=== PATIENT | female | born 1955 | race Caucasian/White ===

== ENCOUNTER → 2017-06-27 10:19 | Outpatient (CLI) | payer OTHER, SELFPAY ==
--- NOTE | 2017-06-27 10:22 | BI_ITS ---
MAMMOGRAPHY - BILATERAL SCREENING REASON FOR EXAM: Female, 62 years old. Routine annual screening examination. PERTINENT HISTORY: NO FAM HX LOST 15-17# LT STEREO BX 17 YRS AGO HERE TECHNIQUE: Digital bilateral breast eliel (3D mammographic acquisition) in the CC and MLO projections. 2-D mediolateral oblique (MLO) and craniocaudad (CC) views of both breasts were obtained. CAD: Full Field Digital Mammography with Computer Added Detection was performed. COMPARISON: 02/09/2004 and 01/16/2003 mammograms. FINDINGS: Breast Composition: The breasts are heterogeneously dense, which may obscure small masses. There are no dominant masses or suspicious calcifications. No other significant abnormalities are identified. BI/SCREENING MAMM (CAD), BILAT IMPRESSION: Stable bilateral screening mammogram. Yearly follow-up mammogram recommended. (A) ASSESSMENT CATEGORY: BIRADS Category 2: Benign. A letter regarding these results will be sent to the patient by the facility within 30 days. Approximately 10% of breast cancers are not detected by mammography. A normal mammogram should not delay biopsy of a clinically suspicious abnormality. [id number] Electronically Signed: Tessy Oconnell MD at 11:50 EDT Tel , Service support ,
--- NOTE | 2017-06-27 10:30 | BD_ITS ---
STUDY: DUAL ENERGY X-RAY ABSORPTIOMETRY / DXA REASON FOR EXAM: Female, 62 years old. The patient is postmenopausal. TECHNIQUE: Bone Mineral Density (BMD) measurements of lumbar spine and bilateral hips were obtained. COMPARISON: Comparison is made with prior study dated February 19, 2003. FINDINGS: Lumbar Spine (L1-L4): g/cm2 (0.800) / T-score (-3.2) / Z-score (-1.6) Findings are suggestive of osteoporosis with a high fracture risk. Left Femur Total: g/cm2 (0.807) / T-score (-1.6) / Z-score (-0.4) Left Femoral Neck: g/cm2 (0.778) / T-score (-1.9) / Z-score (-0.5) Right Femur Total: g/cm2 (0.781) / T-score (-1.8) / Z-score (-0.7) Right Femoral Neck: g/cm2 (0.836) / T-score (-1.5) / Z-score (0.0) The T-Scores on the most recent prior examination were: Lumbar Spine (L1-L4): There has been worsening of bone density since the previous examination. Left Femur Total: which represents a worsening of 10.4%. BD/Dexa Bone Density Study IMPRESSION: The patient is considered osteoporotic as outlined below according to World Chance Organization (WHO) criteria with a high fracture risk. There has been worsening of bone density since the previous examination. Reference Information: The T-score is the number of standard deviations above or below the standard which is normal for young adults at their peak bone mineral density. The World Health Organization (WHO) interprets the T-scores as follows: Above -1 Normal bone density Between -1 and -2.5 Osteopenia Equal to / or below -2.5 Osteoporosis As a practical clinical guideline, osteopenia may be graded as follows: Mild -1 through -1.5 Moderate -1.6 through -2.0 Severe -2.1 through -2.4 The Z-score is the number of standard deviations above or below age-matched controls. A Z-score of less than -1.5 would be considered abnormal. References: 1. NIH Osteoporosis and Related Bone Diseases http://www.osteo.org 2. International Society for Clinical Densitometry http://www.iscd.org 3. National Osteoporosis Foundation http://www.nof.org Electronically Signed: Alvin Wyman MD at 15:55 EDT Tel [phone], Service support ,
== END ==
PROVIDERS: Family Provider Nurse Practitioner; PCP Nurse Practitioner; Visit Provider Nurse Practitioner
DX: Z12.31 Encounter for screening mammogram for malignant neoplasm of breast (principal); Z78.0 Asymptomatic menopausal state; M81.0 Age-related osteoporosis without current pathological fracture
CPT/HCPCS: 77063; 77067; 77080

== ENCOUNTER → 2018-01-01 16:55 | Outpatient (CLI) | payer SELFPAY ==
--- NOTE | 2018-01-01 17:30 | MRI_ITS ---
STUDY: MRI LUMBAR SPINE WITHOUT CONTRAST REASON FOR EXAM: Female, 62 years old. Low back pain. Left leg pain. Patient had surgery at the L2-3 level TECHNIQUE: Standardized fat and water weighted pulse sequences were obtained in the sagittal and axial planes. COMPARISON: None FINDINGS: There is normal alignment and curvature of the lumbosacral spine with no acute fractures or dislocations and no abnormal marrow infiltrative processes. All the disc spaces are normal height and signal except narrowing at the L5-S1 disc space with Modic type II endplate changes evident. The conus medullaris terminates at T12-L1. T12-L1: Normal endplates. Normal disc height, hydration and morphology. Normal bilateral facet joints. Normal central canal and bilateral lateral recesses. Normal bilateral intervertebral neural foramina. L1-2: Normal endplates. Normal disc height, hydration and morphology. Normal bilateral facet joints. Normal central canal and bilateral lateral recesses. Normal bilateral intervertebral neural foramina. L2-3: There is a 1.0 x 0.5 cm mass in the left parapedicular level. This may be from a sequestered disc material following a disc extrusion at this level although may represent an area of post surgical fibrosis (the patient had surgery of the L2-3 level and no contrast was used). It abuts on the left intraspinal L3 nerve root There is no demonstrable extruding disc currently seen at this level.. L3-4: Normal endplates. Normal disc height, hydration and morphology. Normal bilateral facet joints. Normal central canal and bilateral lateral recesses. Normal bilateral intervertebral neural foramina. L4-5: Normal endplates. There is a 6.2 mm annular rent on the right side at the L4-5 level. This is adjacent to the right intervertebral foramen.. Normal bilateral facet joints. Normal central canal and bilateral lateral recesses. Normal bilateral intervertebral neural foramina. L5-S1: Disc space narrowing with intervertebral osteochondrosis but no focal disc protrusion or extrusion. The aorta and visualized portions of the lungs are within normal limits. MRI/Spine Lumbar (Routine) IMPRESSION: A 1.0 x 0.5 cm left parapedicular mass. It impinges on the left intrathecal L3 nerve root and may represent a sequestered disc all post surgical fibrosis. A 6.2 mm annular rent on the right side adjacent to the right intervertebral foramen at the L4-5 level. Intervertebral osteochondrosis at L5-S1 Electronically Signed: Tree Quintero MD at 7:25 EDT Tel , Service support ,
== END ==
PROVIDERS: Family Provider Nurse Practitioner; PCP Nurse Practitioner; Referring Provider Anesthesiology Pain Medicine; Visit Provider Anesthesiology Pain Medicine
DX: M54.9 Dorsalgia, unspecified (principal); R29.898 Other symptoms and signs involving the musculoskeletal system
CPT/HCPCS: 72148

== ENCOUNTER → 2018-08-10 08:38 | Outpatient (CLI) | payer MEDICARE, OTHER, SELFPAY ==
--- NOTE | 2018-08-10 08:45 | BI_ITS ---
MAMMOGRAPHY - BILATERAL SCREENING REASON FOR EXAM: Female, 63 years old. Routine annual screening examination. PERTINENT HISTORY: Non-contributory. Remote left stereotactic breast biopsy. TECHNIQUE: Digital bilateral breast rajeev (3D mammographic acquisition) in the CC and MLO projections. 2-D mediolateral oblique (MLO) and craniocaudad (CC) views of both breasts were obtained. CAD: Full Field Digital Mammography with Computer Added Detection was performed. COMPARISON: Comparison is made with prior study dated June 27, 2017 and November 30, 2014. FINDINGS: Breast Composition: There are scattered areas of fibroglandular density. There are no dominant masses or suspicious calcifications. Once again, a tissue clip marker is seen in the deep upper lateral aspect of the left breast. No other significant abnormalities are identified. There has been no significant change since the prior study. BI/SCREEN MAMM (CAD) W/RAJEEV BILAT IMPRESSION: Stable bilateral screening mammogram. Yearly follow-up mammogram recommended. (A) ASSESSMENT CATEGORY: BIRADS Category 2: Benign. A letter regarding these results will be sent to the patient by the facility within 30 days. Approximately 10% of breast cancers are not detected by mammography. A normal mammogram should not delay biopsy of a clinically suspicious abnormality. [id number] Electronically Signed: Alvin Wyman, at 10:00 EDT , Service support ,
== END ==
PROVIDERS: Family Provider Nurse Practitioner; PCP Nurse Practitioner; Referring Provider Nurse Practitioner; Visit Provider Nurse Practitioner
DX: Z12.31 Encounter for screening mammogram for malignant neoplasm of breast (principal)
CPT/HCPCS: 77063; 77067

== ENCOUNTER → 2019-09-09 14:28 | Outpatient (CLI) | payer MEDICARE, OTHER, SELFPAY ==
--- NOTE | 2019-09-09 14:30 | BI_ITS ---
MAMMOGRAPHY - BILATERAL SCREENING REASON FOR EXAM: Female, 64 years old. Routine annual screening examination. PERTINENT HISTORY: Non-contributory. History of prior left stereotactic breast biopsy. TECHNIQUE: Digital bilateral breast rajeev (3D mammographic acquisition) in the CC and MLO projections. 2-D mediolateral oblique (MLO) and craniocaudad (CC) views of both breasts were obtained. CAD: Full Field Digital Mammography with Computer Added Detection was performed. COMPARISON: Comparison is made with prior examination dated August 10, 2018 and June 27, 2017. FINDINGS: Breast Composition: There are scattered areas of fibroglandular density. There are no dominant masses or suspicious calcifications. A tissue clip marker from prior biopsy is seen in the deep upper lateral aspect of the left breast. No other significant abnormalities are identified. There has been no significant change since the prior study. BI/SCREEN MAMM (CAD) W/RAJEEV BILAT IMPRESSION: Stable bilateral screening mammogram. Yearly follow-up mammogram recommended. (A) ASSESSMENT CATEGORY: BIRADS Category 2: Benign. A letter regarding these results will be sent to the patient by the facility within 30 days. Approximately 10% of breast cancers are not detected by mammography. A normal mammogram should not delay biopsy of a clinically suspicious abnormality. [id number] Electronically Signed: Alvin Wyman, at 15:28 EDT , Service support ,
--- NOTE | 2019-09-09 14:33 | BD_ITS ---
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 COMPARISON: Comparison is made with prior study dated June 27, 2017. FINDINGS: Lumbar Spine (L1-L4): g/cm2 (0.786) / T-score (-3.3) / Z-score (-1.7) Findings are suggestive of osteoporosis with a high fracture risk. Left Femur Total: g/cm2 (0.787) / T-score (-1.7) / Z-score (-0.5) Left Femoral Neck: g/cm2 (-0.808) / T-score (-1.7) / Z-score (-0.1) Right Femur Total: g/cm2 (0.779) / T-score (-1.8) / Z-score (-0.6) Right Femoral Neck: g/cm2 (0.848) / T-score (-1.4) / Z-score (0.2) The T-Scores on the most recent prior examination were: Lumbar Spine (L1-L4): There has been worsening of bone density since the previous examination. Left Femur Total: which represents a worsening of 2.5%. Right Femur Total: which represents a worsening of -0.3. BD/Dexa Bone Density Study IMPRESSION: The patient is considered osteoporotic as outlined below according to World Chance Organization (WHO) criteria with a high fracture risk. There has been worsening of bone density since the previous examination. Reference Information: The T-score is the number of standard deviations above or below the standard which is normal for young adults at their peak bone mineral density. The World Health Organization (WHO) interprets the T-scores as follows: Above -1 Normal bone density Between -1 and -2.5 Osteopenia Equal to / or below -2.5 Osteoporosis As a practical clinical guideline, osteopenia may be graded as follows: Mild -1 through -1.5 Moderate -1.6 through -2.0 Severe -2.1 through -2.4 The Z-score is the number of standard deviations above or below age-matched controls. A Z-score of less than -1.5 would be considered abnormal. References: 1. NIH Osteoporosis and Related Bone Diseases http://www.osteo.org 2. International Society for Clinical Densitometry http://www.iscd.org 3. National Osteoporosis Foundation http://www.nof.org Electronically Signed: Alvin Wyman, at 7:54 EDT , Service support ,
== END ==
PROVIDERS: PCP Nurse Practitioner; Referring Provider Nurse Practitioner; Visit Provider Nurse Practitioner
DX: M81.0 Age-related osteoporosis without current pathological fracture (principal); Z12.31 Encounter for screening mammogram for malignant neoplasm of breast
CPT/HCPCS: 77063; 77067; 77080

== ENCOUNTER 2020-05-18 09:00 | Outpatient (RCR) | payer MEDICARE, OTHER, SELFPAY ==
[2020-05-18] MEDS: COVID-19 VACC, MRNA(PFIZER)/PF 30 MCG/0.3 ML SYRINGE IM (16:46)
[2020-06-08] MEDS: COVID-19 VACC, MRNA(PFIZER)/PF 30 MCG/0.3 ML SYRINGE IM (16:24)
== END 2020-08-17 23:59 ==
LOC: IMMUN 09:00
PROVIDERS: PCP Nurse Practitioner; Visit Provider Family Medicine
DX: Z23 Encounter for immunization (principal)
CPT/HCPCS: 0001A; 0002A; 91300

== ENCOUNTER 2021-07-18 11:35 | Emergency (ER) | payer MEDICARE, OTHER, SELFPAY ==
[2021-07-18] VITALS (8 sets, daily range): BP systolic 118–144; BP diastolic 56–80; PULSE 70–105; RESP 12–22; TEMP 36.2; O2SAT 96–100; BMI 21.0
--- NOTE | 2021-07-18 11:45 | EX.ED.UPPERE ---
HPI History of Present Illness Chief Complaint: Upper Extremity Injury Detail of Chief Complaint: Left wrist injury and deformity Informant: patient and spouse/S.O. Occured/Mechanism Mechanism/Context: Yes blunt trauma Comment: Tripped on pavement falling with outstretched upper extremities Onset/Context/Timing Context: Sudden Onset Timing: Continuous Quality of Pain: Dull and Aching Location: Left wrist Current Severity: Mild Maximum Severity: Severe Worsened by: Any type of movement Relieved by: Better if held against torso Associated Symptoms Associated Symptoms: Positive for Loss of Funtion; Negative for Parasthesia and Weakness Narrative Narrative: Patient is a 66-year-old woman who was walking. She states their street is undergoing construction. She apparently tripped on the lip of the concrete. She fell forward with her arms outstretched. She sustained abrasion over the hypothenar eminence of her right hand and has deformity of the left wrist. She is right-hand dominant. She did hit her head. There is no into trauma. Has no loss conscious. She was not dazed. She denies ringing in ears decreased hearing. She denies trouble with vision. She has trouble with speech or swallowing. Denies neck pain. She denies paresthesia, anesthesia or motor weakness. She denies nausea or vomiting. Tetanus Immunization: >10 years Prior similar symptoms: No Recent Illness/Hospitalization: No PFSH [facility] Medical History (Updated 07/18/21 @ 15:[address] Harry Prather MD) Arthritis Osteoporosis Restless leg syndrome Home Medications ropinirole mg PO QHS 07/18/21 [History Last Taken Unknown] Allergy/AdvReac Type Severity Reaction Status Date / Time No Known Allergies Allergy Verified 07/18/21 11:37 Surgical History (Updated 07/18/21 @ 12:05 by Melissa Vsáquez) History of discectomy Social History (Updated 07/18/21 @ 11:[address] Harry Prather MD) household members: spouse Smoking Status: Never smoker substance use type: does not use ROS ROS ED Constitutional Constitutional ED: Denies chills or fever(s) Eyes Eyes: Denies blurry vision, change in vision or diplopia ENT ENT ED: Denies ear pain, rhinorrhea or sore throat Cardiovascular Cardiovascular: Denies chest pain, palpitations or racing heartbeat Respiratory/Chest Respiratory/Chest: Denies cough, dyspnea or dyspnea on exertion Gastrointestinal Gastrointestinal: Denies nausea or vomiting Musculoskeletal Musculoskeletal: Denies back pain, myalgias or neck pain Integumentary Reports Abrasions; Denies abscess or rash Neurologic Neurologic: Denies headache(s), paresthesias or weakness Hematologic/Lymphatic Hematologic/Lymphatic: Denies easy bleeding or easy bruising Allergic/Immunologic Allergic/Immunologic ED: Denies mouth swelling or tongue swelling EXAM Physical Exam Const Vital Signs: 07/18/21 11:36 Temperature 97.2 F L Temperature Source Temporal Pulse Rate 70 Respiratory Rate 16 Blood Pressure 118/56 L Blood Pressure Mean 76 Pulse Ox 99 Oxygen Delivery Method Room Air Positive well nourished and well developed General Appearance ED: well developed and NAD; Negative for cyanotic or diaphoretic HEENT Denies moist mucous membranes HEENT Narrative: There is no clinical signs of basilar skull fracture. There is no septal deviation hematoma. There is no evidence of dental trauma. normocephalic and atraumatic; Negative for tenderness Eyes PERRL and EOMs intact bilaterally Eyes Narrative: There is no subconjunctival hemorrhage. There is no evidence of entrapment. There is no evidence of hypoesthesia infraorbital nerve. Neck full ROM and supple General: Negative for tenderness Resp No normal respiratory effort and No clear to auscultation bilaterally Cardio regular rate, regular rhythm, S1 normal heart sound, S2 normal heart sound and no murmurs GI non-tender, non-distended and no masses Auscultation: normoactive bowel sounds Palpation: soft Back/Spine Cervical Spine: Negative for cervical spine tenderness Thoracic Spine / Upper Back: Negative for thoracic spinal tenderness Extremity Negative for normal to inspection or full ROM Extremity Narrative: Patient has obvious deformity left wrist. Median, radial and ulnar function intact. There is no pain the patient over the lateral medial epicondyle. Is no pain the patient over the radial head. General Extremety ED: Negative for edema General Extremity: Negative for edema Left Upper Extremity: wrist inspection (Obvious deformity), ROM (Limited due to pain and deformity) and neurovascular exam (Intact) Neuro oriented x3, CN's II-XII intact bilaterally and moves all extremities Sensorium / Orientation: alert Psych mental status grossly normal Skin Lesions: no lesions Rashes: no rashes Trauma: abrasion; Negative for no lacerations or abrasions MDM MDM MDM Narrative Medical decision making narrative: Patient made NPO. IV was established. She was treated with IV Zofran and morphine. X-ray of the wrist was ordered. Per the [place] CT head rule and [place] rule imaging of the head is not indicated or warranted. C-spine was cleared per Nexus criteria. Radiography Diagnostic Testing: Three-view x-ray left wrist reveals a Colles' fracture that is displaced and shortened. This was independently read by me at 1228 3 views of the wrist post reduction reveals approximate 5% displacement. There is loss of volar tilt. She has 0 degrees angulation. There may be a fracture line into the joint noted on the oblique view only. We will contact Dr. Fontanez who is on-call for orthopedics. The post reduction films were independently reviewed and interpreted by me at 1532 Procedures Upper Extremity Splints Upper Extremity Splint: Plaster and - (Short arm AP splint) Splint Fabrication: Fabricated Other Procedures Procedure(s): Hematoma block was placed using 1% lidocaine. Will reassess in 10 minutes. Hematoma block was not successful. Patient was consented for deep sedation using propofol to perform closed reduction of Colles' fracture left wrist. Patient was explained risk benefits of procedural sedation and need for reduction. She consented. Patient received a total of 110 mg of propofol. Procedure started at 1456 and ended at 1310. Closed reduction was undertaken. The fracture is somewhat unstable. Patient was placed in a short arm AP plaster splint and molded. We will obtain postreduction film to determine if successful and acceptable. Patient requested more pain medicine upon awakening. 4 more milligrams of morphine was ordered. Discharge Plan Triage Chief Complaint: Upper Extremity Injury ED Provider: Harry Prather Dx/Rx/DC Orders Clinical Impression: Displaced fracture of distal end of left radius, Closed fracture of styloid process of left ulna Prescriptions: No Action ropinirole 0.25 mg Tablet PO QHS RF: 0 Primary Care Provider: Della Davdi NP Referrals: Gabriel Fontanez DO [STAFF PHYSICIAN] - 3-5 Days Della David NP, [employer] [Primary Care Provider] - Disposition Disposition: Home, Self Care
[2021-07-18] MEDS: Ondansetron 4 MG/2 ML Vial IV (12:07)
[2021-07-18] MEDS: Morphine 4 MG/ML Syringe IV ×2 (12:07→15:26)
[2021-07-18] MEDS: Diphth,Pertuss(Acell),Tet Vac 0.5 ML Vial IM (12:14)
--- NOTE | 2021-07-18 12:20 | RAD_ITS ---
STUDY: X-RAY - LEFT WRIST REASON FOR EXAM: Female, 66 years old. Injury/Pain TECHNIQUE: 2 view(s) of the wrist were obtained. COMPARISON: None. FINDINGS: There is a comminuted nondisplaced fracture of the distal radial metaphysis. There is degenerative arthrosis of the radiocarpal articulation. Avulsion fracture of the ulnar styloid. Normal distal radioulnar articulation. Normal carpal bones. Normal carpal articulations. There is degenerative arthrosis of the carpometacarpal articulation of the thumb. Normal second through fifth carpometacarpal articulations. Normal visualized metacarpal bones. Soft tissue swelling. RAD/Wrist 2 Views IMPRESSION: Nondisplaced comminuted fracture of the distal superior metaphysis as well as an avulsion fracture of the ulnar styloid. Soft tissue swelling. Electronically Signed: Alvin Wyman MD at 12:39 EDT ,
[2021-07-18] MEDS: Propofol 200 MG/20 ML Vial IV BOLUS (15:18)
[2021-07-18] MEDS: Lidocaine 1% (30 ml sdv) 30 ML Vial 10 ML INFILT (15:18)
--- NOTE | 2021-07-18 15:24 | RAD_ITS ---
STUDY: X-RAY - LEFT WRIST REASON FOR EXAM: Female, 66 years old. Injury/Pain TECHNIQUE: 3 view(s) of the wrist were obtained. COMPARISON: Comparison is made with prior study done earlier today. FINDINGS: 3 views were obtained in the cast. There is satisfactory reduction. RAD/Wrist min 3 Views IMPRESSION: Satisfactory reduction of the distal radial fracture. Electronically Signed: Alvin Wyman MD at 15:44 EDT ,
== END 2021-07-18 15:54 | disposition home or self-care (01) ==
PROVIDERS: Emergency Provider Emergency Medicine; PCP Nurse Practitioner; Visit Provider Emergency Medicine
DX: M80.832A Other osteoporosis with current pathological fracture, left forearm, initial encounter for fracture (principal); W01.0XXA Fall on same level from slipping, tripping and stumbling without subsequent striking against object, initial encounter; Y93.01 Activity, walking, marching and hiking; Y92.410 Unspecified street and highway as the place of occurrence of the external cause
CPT/HCPCS: 25600; 73100; 73110; 90715; 96374; 96375; 96376; 99285; A4216; J2405

== ENCOUNTER → 2021-07-22 | Outpatient (CLI) | payer MEDICARE, OTHER, SELFPAY ==
--- NOTE | 2021-07-22 12:46 | EKG12_ITS ---
Test Reason : PRE OP Blood Pressure : / mmHG Vent. Rate : 095 BPM Atrial Rate : 095 BPM P-R Int : 142 ms QRS Dur : 068 ms QT Int : 332 ms P-R-T Axes : 061 050 076 degrees QTc Int : 417 ms Normal sinus rhythm Normal ECG Confirmed by VAN TAPIA, ISABELLE ([id number]), brands editor GHAZALA CONKLIN ([id number]) on 07/25/2021 9:23:17 AM Referred By: KHADIJAH Confirmed By:ISABELLE ARAUJO MD
[2021-07-22 13:33] LABS: Absolute Lymphocyte Count 1.32 X10^3/uL (0.83-4.51); Absolute Neutrophil Count 3.5 X10^3/uL (2.0-7.7); Basophil# 0.06 X10^3/uL; Basophil% 1.1 % (0-1); Eosinophils% 1.9 % (0-5); Hematocrit 41.7 % (37-47); Hemoglobin 13.1 g/dL (12.0-15.0); Lymphocyte # 1.32 X10^3/ul (0.83-4.51); Lymphocyte % 24.9 % (19-41); Mean Corp Hgb Conc 31.4 g/dL (32-36); Mean Corpuscular Hgb 28.1 pg (27.0-32.0); Mean Corpuscular Volume 89.5 fL (81-99); Mean Platelet Vol. 8.7 fl (6.2-12.0); Monocyte# 0.33 X10^3/uL; Monocyte% 6.2 % (0-10); NRBC Flagged by Analyzer 0 % (0-5); Neutrophil # 3.49 X10^3/uL (2.7-7.7); Neutrophil % 65.7 % (47-70); Platelet Count 296 K/mm3 (150-450); RBC Distribution Width CV 13.2 % (11.6-14.6); RBC Distribution Width SD 43.5 fl (35.1-43.9); Red Blood Count 4.66 M/mm3 (4.2-5.4); White Blood Count 5.3 K/mm3 (4.4-11.0)
[2021-07-22 13:56] LABS: Anion Gap 5 (5-15); BUN 15 mg/dL (7-18); BUN/Creat Ratio 15.4 RATIO (10-20); Calcium,Total 9.4 mg/dL (8.5-10.1); Chloride 102 mmol/L (98-107); Creatinine, Serum 0.98 mg/dL (0.55-1.02); EST Glomerular Filtration Rate 60 mL/min (>60); Est Glom Filt Rate - Afr Amer 73 mL/min (>60); Glucose 123 mg/dL (74-106); Potassium 3.8 mmol/L (3.5-5.1); Sodium Level 137 mmol/L (136-145)
== END | disposition home or self-care (01) ==
PROVIDERS: PCP Nurse Practitioner; Visit Provider Physician Assistant Surgical
DX: Z01.818 Encounter for other preprocedural examination (principal); Z01.810 Encounter for preprocedural cardiovascular examination
CPT/HCPCS: 36415; 80048; 85025; 93005

== ENCOUNTER → 2022-02-07 | Outpatient (CLI) | payer MEDICARE, OTHER, SELFPAY ==
[2022-02-07 10:22] LABS: Anion Gap 8 (5-15); BUN 12 mg/dL (7-18); BUN/Creat Ratio 12.1 RATIO (10-20); Calcium,Total 9.7 mg/dL (8.5-10.1); Chloride 106 mmol/L (98-107); Creatinine, Serum 0.99 mg/dL (0.55-1.02); EST Glomerular Filtration Rate 59 mL/min (>60); Est Glom Filt Rate - Afr Amer 72 mL/min (>60); Glucose 97 mg/dL (74-106); Potassium 3.8 mmol/L (3.5-5.1); Sodium Level 140 mmol/L (136-145)
[2022-02-07 12:24] LABS: Hematocrit 41.5 % (37-47); Hemoglobin 12.9 g/dL (12.0-15.0); Mean Corp Hgb Conc 31.1 g/dL (32-36); Mean Corpuscular Volume 90.2 fL (81-99); Mean Platelet Vol. 9.3 fl (6.2-12.0); Platelet Count 302 K/mm3 (150-450); RBC Distribution Width CV 14.1 % (11.6-14.6); RBC Distribution Width SD 46.4 fl (35.1-43.9)
== END | disposition home or self-care (01) ==
LOC: MTLAB 08:08
PROVIDERS: PCP Nurse Practitioner Family; Referring Provider Student in an Organized Health Care Education/Training Program; Visit Provider Student in an Organized Health Care Education/Training Program
DX: Z01.818 Encounter for other preprocedural examination (principal)
CPT/HCPCS: 36415; 80048; 85027

== ENCOUNTER → 2022-03-07 | Outpatient (CLI) | payer MEDICARE, OTHER, SELFPAY ==
--- NOTE | 2022-03-07 12:29 | BD_ITS ---
STUDY: DUAL ENERGY X-RAY ABSORPTIOMETRY / DXA REASON FOR EXAM: Female, 66 years old. 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 COMPARISON: Comparison is made with prior examination dated 09/09/2019. FINDINGS: Lumbar Spine (L1-L4): g/cm2 (0.671) / T-score (-3.2) / Z-score (-1.2) Findings are suggestive of osteoporosis with a high fracture risk. Left Femur Total: g/cm2 (0.759) / T-score (-1.5) / Z-score (-0.1) Left Femoral Neck: g/cm2 (0.677) / T-score (-1.6) / Z-score (0.2) Right Femur Total: g/cm2 (0.750) / T-score (-1.6) / Z-score (-0.1) Right Femoral Neck: g/cm2 (0.701) / T-score (-1.3) / Z-score (0.4) The T-Scores on the most recent prior examination were: Lumbar Spine (L1-L4): There has been improvement of bone density since the previous examination. Left Femur Total: which represents an improvement of 4.3%. Right Femur Total: which represents an improvement of 4.2%. BD/Dexa Bone Density Study IMPRESSION: The patient is considered osteoporotic as outlined below according to World Chance Organization (WHO) criteria with a high fracture risk. There has been improvement of bone density since the previous examination. Reference Information: The T-score is the number of standard deviations above or below the standard which is normal for young adults at their peak bone mineral density. The World Health Organization (WHO) interprets the T-scores as follows: Above -1 Normal bone density Between -1 and -2.5 Osteopenia Equal to / or below -2.5 Osteoporosis As a practical clinical guideline, osteopenia may be graded as follows: Mild -1 through -1.5 Moderate -1.6 through -2.0 Severe -2.1 through -2.4 The Z-score is the number of standard deviations above or below age-matched controls. A Z-score of less than -1.5 would be considered abnormal. References: 1. NIH Osteoporosis and Related Bone Diseases www osteo.org 2. International Society for Clinical Densitometry www iscd.org 3. National Osteoporosis Foundation www nof.org Electronically Signed: Alvin Wyman MD at 11:22 EST ,
--- NOTE | 2022-03-07 12:29 | BI_ITS ---
MAMMOGRAPHY - BILATERAL SCREENING REASON FOR EXAM: Female, 66 years old. Routine annual screening examination. PERTINENT HISTORY: History of prior left breast stereotactic biopsy. No reported personal history of breast cancer. TECHNIQUE: Digital bilateral breast rajeev (3D mammographic acquisition) in the CC and MLO projections. 2-D mediolateral oblique (MLO) and craniocaudad (CC) views of both breasts were obtained. CAD: Full Field Digital Mammography with Computer Added Detection was performed. COMPARISON: Mammogram from 09/09/2019, 08/10/2018. FINDINGS: Breast Composition: There are scattered areas of fibroglandular density. There are no dominant masses or suspicious calcifications. Stable biopsy marker in the left upper outer breast. No other significant abnormalities are identified. There has been no significant change since the prior study. BI/SCRN MAMM (CAD)W/RAJEEV BILAT IMPRESSION: Stable bilateral screening mammogram. Yearly follow-up mammogram recommended. (A) ASSESSMENT CATEGORY: BIRADS Category 2: Benign. A letter regarding these results will be sent to the patient by the facility within 30 days. Approximately 10% of breast cancers are not detected by mammography. A normal mammogram should not delay biopsy of a clinically suspicious abnormality. Electronically Signed: Chetan Almeida, at 10:23 EST ,
== END | disposition home or self-care (01) ==
LOC: OPBD 12:21
PROVIDERS: PCP Nurse Practitioner Family; Visit Provider Nurse Practitioner Family
DX: M81.0 Age-related osteoporosis without current pathological fracture (principal); Z12.31 Encounter for screening mammogram for malignant neoplasm of breast
CPT/HCPCS: 77063; 77067; 77080

== ENCOUNTER → 2023-03-09 | Outpatient (CLI) | payer MEDICARE, OTHER, SELFPAY ==
--- NOTE | 2023-03-09 10:37 | BI_ITS ---
MAMMOGRAPHY - BILATERAL SCREENING 3-D TOMOSYNTHESIS REASON FOR EXAM: Female, 67 years old. Routine annual screening mammogram. PERTINENT HISTORY: History of left stereotactic biopsy. TECHNIQUE: 2-D mammograms and 3-D Tomosynthesis of the breast (s) were performed. CAD was performed. COMPARISON: March 07, 2022, September 09, 2019 FINDINGS: The breast composition is composed of scattered fibroglandular density. Stable normal lymph nodes in the left tissue clip marker and scattered benign calcifications. No dominant masses, suspicious microcalcifications, asymmetries, skin thickening or nipple retraction BI/SCRN MAMM (CAD)W/RAJEEV BILAT IMPRESSION: No interval change and no mammographic signs of malignancy. Routine yearly mammogram recommended. ASSESSMENT CATEGORY: BIRADS Category 2: Benign. A letter regarding these results will be sent to the patient by the facility within 30 days. FOLLOW UP RECOMMENDATION: Yearly follow up mammogram recommended. (A) Approximately 10% of breast cancers are not detected by mammography. A normal mammogram should not delay biopsy of a clinically suspicious abnormality. Electronically Signed: Ramez Oden MD at 14:19 EST ,
== END | disposition home or self-care (01) ==
LOC: OPBI 10:35
PROVIDERS: PCP Nurse Practitioner Family; Referring Provider Nurse Practitioner Family; Visit Provider Nurse Practitioner Family
DX: Z12.31 Encounter for screening mammogram for malignant neoplasm of breast (principal)
CPT/HCPCS: 77063; 77067

== ENCOUNTER → 2023-08-28 | Outpatient (CLI) | payer MEDICARE, OTHER, SELFPAY ==
--- NOTE | 2023-08-28 12:44 | US_ITS ---
EXAM: US SOFT TISSUES HEAD AND NECK, THYROID CLINICAL INDICATION: Nontoxic goiter, unspecified TECHNIQUE: Greyscale and color doppler imaging was performed of the thyroid gland. COMPARISON: No relevant prior studies available. FINDINGS: LEFT THYROID LOBE: The left thyroid lobe measures 3.4 x 1.1 x 1.1 cm. There is a left thyroid lobe nodule measuring 4 mm. This nodule is solid or almost completely solid, hypoechoic, [id number], smoothly marginated and contains no echogenic foci. TI-RADS points: 4. TI-RADS category: TR4. This nodule is moderately suspicious but no FNA or follow-up is necessary given the small size of this nodule. The left thyroid lobe is homogeneous with normal vascularity. RIGHT THYROID LOBE: The right thyroid lobe measures 4.1 x 1.4 x 1.4 cm. Right thyroid lobe cyst measuring 4 mm. TI-RADS points: 0. TI-RADS category: TR1. This nodule is benign and no FNA or follow-up is necessary. Homogeneous echotexture with normal vascularity. ISTHMUS: The thyroid isthmus measures 0.2 cm. No thyroid nodules are present. US/Thyroid IMPRESSION: Right thyroid lobe cyst and left thyroid lobe nodule. As detailed above, no follow-up or FNA is indicated. No significant thyroid enlargement. Electronically Signed: Michelet Perry DO at 21:43 EDT ,
== END | disposition home or self-care (01) ==
LOC: US 12:43
PROVIDERS: PCP Nurse Practitioner Family; Referring Provider Nurse Practitioner Family; Visit Provider Nurse Practitioner Family
DX: E04.9 Nontoxic goiter, unspecified (principal)
CPT/HCPCS: 76536

== ENCOUNTER 2023-09-26 08:09 | Day surgery (SDC) | payer MEDICARE, OTHER, SELFPAY ==
[2023-09-26] VITALS (7 sets, daily range): BP systolic 107–139; BP diastolic 60–78; PULSE 72–94; RESP 16; TEMP 36.1–36.6; O2SAT 97–100; BMI 21.4
[2023-09-26] MEDS: Lactated Ringers 1,000 ML 15 ML IV (08:35)
--- NOTE | 2023-09-26 08:43 | PCM.PRE.AN2 ---
ASA Classification* ASA Classification ASA Classification: 1 Assessment & Plan Anesthesia* Anesthesia Assessment Anesthesia Assessment: Discussed sedation and/or anesthesia options, risks, benefits, and alternatives with patient/parents/legal guardian/POA. Questions invited. The patient/parents/legal guardian/POA seems to understand and agrees to proceed with anesthesia plan. Reviewed the physical assessment, medical history, allergy history and patient home medications list prior to surgery/procedure/anesthetic and documented any changes. Performed airway and anesthesia risk assessments. Anesthesia Type Anesthesia Type: MAC History Source History Obtained from:: Patient and Chart Anesthesia Focused Assessment* Temperature: 97.8 F Pulse Rate: 94 Blood Pressure: 139/78 Respiratory Rate: 16 Pulse Ox: 100 Oxygen Delivery Method: Room Air Airway Assessment Mouth opens: >3 cm Mallampati Score: I Teeth Condition: Missing (Missing tooth left lower molar) and Partial (Right lower implant is permanent) Neck Range of motion (ROM): Full ROM Pertinent Findings EKG Pertinent Findings:: July 22, 2021. Normal sinus rhythm. 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 When Was Last Pacemaker Check QUESTION #4 FULL TEXT: You/Your Family Experience fever (hyperthermia) with Anesthesia Last Oral Intake Last Oral intake: Last Oral Intake NPO since 05:00 09/26/23 08:32 Meds taken in AM with sips of No 09/26/23 08:32 water? 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 Female Yes 09/21/23 12:15 HX of Motion Sickness No 09/21/23 12:15 HX of N/V After Surgery No 09/21/23 12:15 Non-Smoker Yes 09/21/23 12:15 Duration of Surgery greater No 09/21/23 12:15 than 60 minutes Number of Risk Factors 2 09/21/23 12:15 PONV Score Moderate Risk 09/21/23 12:15 Height & Weight Height & Weight: Anesthesia: Height & Weight Height 5 ft 3 in 09/26/23 08:32 Weight: 55 kg 09/26/23 08:32 Body Mass Index (BMI) 21.4 09/26/23 08:32 Respiratory Assessment Respiratory Assessment - tape rules printing machine operator: Respiratory Tract Infection Hx - 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 Has anyone observed you stop No 09/21/23 12:15 breathing during sleep? STOP Results Negative 09/21/23 12:15 QUESTION #5 FULL TEXT : Do you snore loudly (louder than talking or can be heard through closed doors)? 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 Specify any problems Hx of Preganancy in last 3 N/A 09/21/23 12:15 Months Nurse Filling Out Transfusion SFRANTZ 09/21/23 12:15 & Questions: Date: 09/21/23 09/21/23 12:15 Time: 12:17 09/21/23 12:15 Patient unable to answer at this time (ie. 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: /Reproductive Hx- tape rules printing machine operator Hx Now No 09/21/23 12:15 Gestational Age (in weeks): EDC: Hx Hx Para Hx Section SAB No 09/21/23 12:15 Active Medications Active Medications: Current Medications Generic Name Dose Route Start Last Admin Trade Name Freq PRN Reason Stop Dose Admin Lactated Ringer's 1,000 mls @ 15 mls/hr 09/26/23 08:30 09/26/23 08:35 IV 15 mls/hr .Q48H CHAU Administration PFSH Medical History Wears glasses Post-menopausal Alcohol use History of torn meniscus of left knee History of wrist fracture Easy bruising Non-smoker History of stress test History of echocardiogram Hypercholesteremia Arthritis Restless leg syndrome Osteoporosis Home Medications ?Medication ?Instructions ?Recorded ?Last Taken ?Type ropinirole 0.25 mg tablet 0.5 mg PO QHS 07/18/21 09/25/23 History calcium carb,cit 300 mg-D3 200 2 tab PO DAILY 08/27/23 09/24/23 History unit-min no.34-genistein 13.5 mg tablet (Citracal Plus Bone Density Builder) cholecalciferol (vitamin D3) 50 2,000 unit PO DAILY 08/27/23 09/24/23 History mcg (2,000 unit) capsule cyclobenzaprine 10 mg tablet 10 mg PO HS PRN muscle spasm 08/27/23 09/24/23 History denosumab 60 mg/mL subcutaneous 60 mg subcut [id number] osteoporosis 08/27/23 07/11/23 History syringe (Prolia) red yeast rice 600 mg capsule 600 mg PO DAILY 08/27/23 09/23/23 History Allergy/AdvReac Type Severity Reaction Status Date / Time No Known Allergies Allergy Verified 09/26/23 08:30 Family History Sister Graves disease Father Lung cancer Brain cancer Kidney carcinoma Mother Cardiomyopathy Surgical History Hx of eye surgery Hx of hand surgery Hx of colonoscopy History of back surgery History of discectomy Social History household members: spouse current occupational status: retired Smoking Status: Never smoker alcohol intake: current alcohol intake frequency: a few times a week Alcohol type: wine details: 4 glasses weekly substance use type: does not use Review of Systems (Anesthesia) ROS Narrative System reviewed and no additional complaints, except as documented.
--- NOTE | 2023-09-26 09:31 | HP.PCM_ITS ---
HPI - General General Date of Admission: 09/26/23 Date of Service: 09/26/23 Chief Complaint: Screening colonoscopy HPI Narrative JOAQUIN GRAY, is a 68 F who presents today for screening colonoscopy. She does not have any abdominal pain. She denies any cramping. She denies any chest pain or shortness of breath. She had a colonoscopy approximately 10 years ago and it was normal. [facility] Medical History Wears glasses Post-menopausal Alcohol use History of torn meniscus of left knee History of wrist fracture Easy bruising Non-smoker History of stress test History of echocardiogram Hypercholesteremia Arthritis Restless leg syndrome Osteoporosis Home Medications ?Medication ?Instructions ?Recorded ?Last Taken ?Type ropinirole 0.25 mg tablet 0.5 mg PO QHS 07/18/21 09/25/23 History calcium carb,cit 300 mg-D3 200 2 tab PO DAILY 08/27/23 09/24/23 History unit-min no.34-genistein 13.5 mg tablet (Citracal Plus Bone Density Builder) cholecalciferol (vitamin D3) 50 2,000 unit PO DAILY 08/27/23 09/24/23 History mcg (2,000 unit) capsule cyclobenzaprine 10 mg tablet 10 mg PO HS PRN muscle spasm 08/27/23 09/24/23 History denosumab 60 mg/mL subcutaneous 60 mg subcut [id number] osteoporosis 08/27/23 07/11/23 History syringe (Prolia) red yeast rice 600 mg capsule 600 mg PO DAILY 08/27/23 09/23/23 History Allergy/AdvReac Type Severity Reaction Status Date / Time No Known Allergies Allergy Verified 09/26/23 08:30 Family History Sister Graves disease Father Lung cancer Brain cancer Kidney carcinoma Mother Cardiomyopathy Surgical History Hx of eye surgery Hx of hand surgery Hx of colonoscopy History of back surgery History of discectomy Social History household members: spouse current occupational status: retired Smoking Status: Never smoker alcohol intake: current alcohol intake frequency: a few times a week Alcohol type: wine details: 4 glasses weekly substance use type: does not use ROS Review of Systems ROS Unobtainable: other Constitutional Constitutional: Denies fatigue, fever(s), poor appetite, weight gain or weight loss ENT HEENT: Denies mouth lesions Cardiovascular Cardiovascular: Denies abdominal bloating, abdominal edema or abdominal pain Respiratory/Chest Respiratory/Chest: Denies change in mental status, change in phlegm color, chest congestion or chest tightness Gastrointestinal Gastrointestinal: Denies belching, bloating, change in bowel habits, change in stool character, chewing difficulty, coffee ground emesis, constipation, cramping, diarrhea, dyspepsia, dysphagia, early satiety, excessive flatus, fecal incontinence, heartburn, hematemesis, hematochezia, hemorrhoids, loose stools, melena, nausea, odynophagia, rectal bleeding, tenesmus, vomiting or weight changes Genitourinary Genitourinary: Denies abdominal discomfort, burning urination or itching Musculoskeletal Musculoskeletal: Reports as per HPI; Denies muscle weakness or myalgias Integumentary Integumentary: Denies jaundice Neurologic Neurologic: Denies lack of coordination or weakness Psychiatric Psychiatric: Denies confusion, depression, memory loss, mood swings, paranoia or suicidal ideation Endocrine Endocrinology: Denies systems reviewed and no addt'l complaints, except as documented Hematologic/Lymphatic Hematologic/Lymphatic: Denies anemia, easy bleeding, easy bruising or lymphadenopathy Allergic/Immunologic Allergic/Immunologic: Denies systems reviewed and no addt'l complaints, except as documented Vital Signs Vital Signs Vital Signs: 09/26/23 08:32 09/26/23 08:32 09/26/23 08:51 Temperature 97.8 F 97.8 F Temperature Source Temporal Pulse Rate 94 94 Respiratory Rate 16 16 Respiratory Pattern Normal Blood Pressure 139/78 H 139/78 H Blood Pressure Mean 98 Blood Pressure Source Monitor Blood Pressure Position Semi-Fowlers Blood Pressure Location Right Arm Pulse Ox 100 100 Oxygen Delivery Method Room Air Room Air Weight Weight: 121 lb 4.068 oz Body Mass Index (BMI) 21.4 Physical Exam Const alert General Appearance: cooperative Orientation / Consciousness: oriented to person HEENT hearing grossly normal bilaterally Head and Scalp: normal to inspection Face and Sinus: face symmetric Nose: external nose normal Mouth: oral and palatal mucosa normal Eyes conjunctivae normal General Eye: normal appearance of both eyes Neck full ROM General: normal visual inspection Lymph Lymphatic: no lymphadenopathy noted Chest inspection of chest normal and palpation of chest normal Chest: symmetrical chest wall rise Resp normal respiratory effort Effort and Inspection: able to speak in complete sentences Cardio regular rate GI non-distended Percussion: normal to percussion Rectal Exam: deferred Neuro Speech: speech normal Gait (Neuro): normal gait Assessment & Plan Assessment/Plan (1) Encounter for screening for malignant neoplasm of colon: PLAN: She was explained alternatives, risk, benefits including not withstanding bleeding, infection, sepsis, perforation, need for emergency urgent . She will have an ASA of 3.
--- NOTE | 2023-09-26 09:57 | OP.CCLET_ITS ---
09/26/2023 Donald Jacinto Re : Colonoscopy procedure for Lay Zamudio Dear Ronni This procedure was performed on Tuesday, September 26, 2023. My impressions and recommendations are as follows: Impressions : - The entire examined colon is normal. - No specimens collected. Recommendations : - Discharge patient to home. - Resume previous diet. - Continue present medications. - Repeat colonoscopy in 10 years for screening purposes. My findings are described in the full procedure note, which is enclosed. If I can be of further assistance, please feel free to contact me at . Sincerely, Cayden Ocampo, 09/26/2023 9:56:56 AM This report has been signed electronically.
--- NOTE | 2023-09-26 09:57 | OP.COLON_ITS ---
Patient Name: Lay Zamudio Procedure Date: 09/26/2023 9:33 AM Date of : 1955 Age: 68 Procedure: Colonoscopy Indications: Screening for colorectal malignant neoplasm Providers: Cayden Ocampo DO Referring MD: Donald Jacinto Medicines: Monitored Anesthesia Care Patient Profile: This is a 68 year old female. Refer to note in patient chart for documentation of history and physical. Last Colonoscopy: more than 10 years ago. Complications: No immediate complications. Procedure: Pre-Anesthesia Assessment: - Prior to the procedure, a History and Physical was performed, and patient medications and allergies were reviewed. The risks and benefits of the procedure and the sedation options and risks were discussed with the patient. All questions were answered and informed consent was obtained. Patient identification and proposed procedure were verified by the physician. Mental Status Examination: normal. Prophylactic Antibiotics: The patient does not require prophylactic antibiotics. Prior Anticoagulants: The patient has taken no anticoagulant or antiplatelet agents. ASA Grade Assessment: II - A patient with mild systemic disease. After reviewing the risks and benefits, the patient was deemed in satisfactory condition to undergo the procedure. The anesthesia plan was to use monitored anesthesia care (MAC). Immediately prior to administration of medications, the patient was re-assessed for adequacy to receive sedatives. The heart rate, respiratory rate, oxygen saturations, blood pressure, adequacy of pulmonary ventilation, and response to care were monitored throughout the procedure. The physical status of the patient was re-assessed after the procedure. After I obtained informed consent, the scope was passed under direct vision. Throughout the procedure, the patient's blood pressure, pulse, and oxygen saturations were monitored continuously. The Colonoscope was introduced through the anus and advanced to the cecum, identified by appendiceal orifice and ileocecal valve. The colonoscopy was performed without difficulty. The patient tolerated the procedure well. The quality of the bowel preparation was adequate. The ileocecal valve, appendiceal orifice, and rectum were photographed. Scope In: 9:41:30 AM Scope Withdrawal Time 0 hours 7 minutes 34 seconds Scope Out: 9:53:54 AM Total Procedure Duration Time 0 hours 12 minutes 24 seconds Findings: The perianal and digital rectal examinations were normal. The colon (entire examined portion) appeared normal. Impression: - The entire examined colon is normal. - No specimens collected. Recommendation: - Discharge patient to home. - Resume previous diet. - Continue present medications. - Repeat colonoscopy in 10 years for screening purposes. Procedure Code(s): --- Professional --- G0121, Colorectal cancer screening; colonoscopy on individual not meeting criteria for high risk CPT copyright 2021 [employer]. All rights reserved. The codes documented in this report are preliminary and upon medical record coder review may be revised to meet current compliance requirements. Cayden Ocampo DO 09/26/2023 9:56:56 AM This report has been signed electronically. Number of Addenda: 0 Note Initiated On: 09/26/2023 9:33 AM
--- NOTE | 2023-09-26 10:00 | PCM.POST.ANE ---
Anesthesia: Postop Eval I Current Vital Signs Temperature: 97 F Pulse Rate: 77 Blood Pressure: 116/60 Respiratory Rate: 16 Pulse Ox: 97 Oxygen Delivery Method: Room Air Assessment Airway patent: Yes Spontaneous unlabored respirations: Yes Mental status: Asleep nausea: No Vomiting: No Anesthesia Complication: No Fluid Hydration Crystalloid volume administer (ml): 500 Total IV fluid infused: 500 Progress Note Anesthesia document: Postop Eval 1 completed: Yes
--- NOTE | 2023-09-26 17:54 | PCM.POSTANE2 ---
Anesthesia Postop Eval I Sum Postop Eval Completion status Anesthesia document: Postop Eval 1 completed: Yes Anesthesia Postop Eval I Summary Anesthesia Postop Eval I Summary: Anesthesia Postop Eval I: Assessment Summary Airway patent Yes 09/26/23 10:03 [email or web address] Spontaneous unlabored Yes 09/26/23 10:03 [email or web address] respirations Mental status Asleep 09/26/23 10:03 [email or web address] nausea No 09/26/23 10:03 [email or web address] Vomiting No 09/26/23 10:03 [email or web address] Anesthesia Postop Eval I: Fluid Summary Crystalloid volume administer 500 09/26/23 10:03 [email or web address] (ml) Colloids volume administered ( ml) Blood Product volume administered (ml) Total IV fluid infused 500 09/26/23 10:03 [email or web address] Anesthesia Postop Eval I: Summary Notes Anesthesia Complication No 09/26/23 10:03 [email or web address] Anesthesia Complication Comment: Post-operative progress note Anesthesia: Postop Eval II Evaluation Mental status: Awake and Calm Pain Level: 0 nausea: No Vomiting: No Complications Anesthesia Complication: No
== END 2023-09-26 10:37 | disposition home or self-care (01) ==
LOC: EN 08:09 → AC 08:10
PROVIDERS: PCP Nurse Practitioner Family; Referring Provider Nurse Practitioner Family; Visit Provider Internal Medicine Gastroenterology
PROC: 0DJD8ZZ Inspection of Lower Intestinal Tract, Via Natural or Artificial Opening Endoscopic (ICD-10-PCS; CPT 45378; principal; 2023-09-26 09:10)
DX: Z12.11 Encounter for screening for malignant neoplasm of colon (principal); E78.00 Pure hypercholesterolemia, unspecified; Z79.899 Other long term (current) drug therapy
CPT/HCPCS: G0121; J7120; J2405

== ENCOUNTER → 2024-09-02 | Outpatient (CLI) | payer MEDICARE, OTHER, SELFPAY ==
--- NOTE | 2024-09-02 14:58 | BD_ITS ---
PROCEDURE: DEXA BONE DENSITY STUDY 09/02/2024 REASON FOR EXAM: F, age 69 y/o . TECHNIQUE: DEXA BONE DENSITY STUDY COMPARISON: DEXA scan dated 03/07/2022 FINDINGS: BMD and T-SCORES Lumbar spine: 0.735 g/cm2, T-score -2.8 Levels: L1 through L4 Change from prior: Dissimilar scan types/analysis methods, showing. Left femoral neck: 0.649 g/cm2, T-score -1.8 Femoral neck comparison data not recommended for monitoring change. Prior T-score -1.6 Left total hip: 0.790 g/cm2, T-score -1.2 Change from prior: Statistically significant BMD increase of 4.1%. Right femoral neck: 0.727 g/cm2, T-score -1.1 Femoral neck comparison data not recommended for monitoring change. Prior T-score -1.3 Right total hip: 0.780 g/cm2, T-score -1.3 Change from prior: Statistically significant BMD increase of 4.0%. The World Health Organization has defined the following categories based on bone density: Normal bone density: T-score equal to or greater than -1.0 Osteopenia: T-score between -1.0 and -2.5 Osteoporosis: T-score equal to or less than -2.5 BD/Dexa Bone Density Study IMPRESSION: OSTEOPOROSIS. Reading Location: [id number]
--- NOTE | 2024-09-02 15:30 | BI_ITS ---
EXAM: SCRN MAMM (CAD)W/RAJEEV BILAT DATE: 09/02/2024 CLINICAL HISTORY: F, Age 69 y/o , SCREENING TECHNIQUE: SCRN MAMM (CAD)W/RAJEEV BILAT COMPARISON: Prior exam(s) were compared FINDINGS: TISSUE DENSITY: The breast tissue is composed of scattered areas of fibroglandular density. Bilateral Breast Mammographic Findings: Right breast: There is an asymmetry in the upper right breast posterior depth on the MLO view. Left breast: no suspicious masses, calcifications or other abnormalities are identified. BI/SCRN MAMM (CAD)W/RAJEEV BILAT IMPRESSION: Additional diagnostic imaging is recommended of the right breast with diagnosti c right breast mammogram and ultrasound No mammographic evidence of malignancy in the left breast OVERALL FINAL ASSESSMENT BI-RADS 0: INCOMPLETE - NEED ADDITIONAL IMAGING EVALUATION. RECOMMENDATION: Additional Views/call back A letter with findings and recommendations will be mailed to the patient. Reading Location: [id number]
== END | disposition home or self-care (01) ==
LOC: OPBD 14:52
PROVIDERS: PCP Nurse Practitioner Family; Referring Provider Nurse Practitioner Family; Visit Provider Nurse Practitioner Family
DX: M81.0 Age-related osteoporosis without current pathological fracture (principal); Z12.31 Encounter for screening mammogram for malignant neoplasm of breast
CPT/HCPCS: 77063; 77067; 77080

== ENCOUNTER → 2024-09-17 | Outpatient (CLI) | payer MEDICARE, OTHER, SELFPAY ==
--- NOTE | 2024-09-17 13:00 | BI_ITS ---
EXAM: DIAG MAMM W/CAD, UNILAT; RT BRST UNILAT RAJEEV ADD-ON 09/17/2024 CLINICAL HISTORY: 69-year-old female presents for right breast findings seen on examination of 09/02/2024. TECHNIQUE: DIAG MAMM W/CAD, UNILAT; RT BRST UNILAT RAJEEV ADD-ON. COMPARISON: Prior exam(s) dated 09/02/2024, 03/09/2023, 03/07/2022. FINDINGS: TISSUE DENSITY: There are scattered areas of fibroglandular density. Unilateral Right Breast Mammographic Findings: Follow-up examination performed for the asymmetry seen in the superior right breast on examination of 09/02/2024. On the present examination, the asymmetry in the superior right breast visualized on the MLO view does not persist. This likely represents benign overlapping fibroglandular tissue. BI/Rt Brst Unilat Rajeev Add-On IMPRESSION: There is no evidence of malignancy in the right breast. OVERALL FINAL ASSESSMENT BI-RADS 1: NEGATIVE. RECOMMEND ANNUAL MAMMOGRAPHIC SCREENING. RECOMMENDATION: Routine annual follow-up in 1 Year A letter with findings and recommendations will be mailed to the patient. Reading Location: [id number]
--- NOTE | 2024-09-17 13:00 | BI_ITS ---
EXAM: DIAG MAMM W/CAD, UNILAT; RT BRST UNILAT RAJEEV ADD-ON 09/17/2024 CLINICAL HISTORY: 69-year-old female presents for right breast findings seen on examination of 09/02/2024. TECHNIQUE: DIAG MAMM W/CAD, UNILAT; RT BRST UNILAT RAJEEV ADD-ON. COMPARISON: Prior exam(s) dated 09/02/2024, 03/09/2023, 03/07/2022. FINDINGS: TISSUE DENSITY: There are scattered areas of fibroglandular density. Unilateral Right Breast Mammographic Findings: Follow-up examination performed for the asymmetry seen in the superior right breast on examination of 09/02/2024. On the present examination, the asymmetry in the superior right breast visualized on the MLO view does not persist. This likely represents benign overlapping fibroglandular tissue. BI/DIAG MAMM W/CAD, UNILAT IMPRESSION: There is no evidence of malignancy in the right breast. OVERALL FINAL ASSESSMENT BI-RADS 1: NEGATIVE. RECOMMEND ANNUAL MAMMOGRAPHIC SCREENING. RECOMMENDATION: Routine annual follow-up in 1 Year A letter with findings and recommendations will be mailed to the patient. Reading Location: [id number]
== END | disposition home or self-care (01) ==
LOC: OPBI 12:57
PROVIDERS: PCP Nurse Practitioner Family; Referring Provider Nurse Practitioner Family; Visit Provider Nurse Practitioner Family
DX: R92.8 Other abnormal and inconclusive findings on diagnostic imaging of breast (principal)
CPT/HCPCS: 77061; 77065; G0279

== ENCOUNTER 2024-10-13 14:36 | Emergency (ER) | payer MEDICARE, OTHER, SELFPAY ==
[2024-10-13 14:36] VITALS: BP 166/69; PULSE 97; RESP 16; TEMP 36.7; O2SAT 98; BMI 21.9
[2024-10-13] MEDS: Lidocaine 1% (20 ml mdv) 20 ML Vial INFILT (15:25)
--- NOTE | 2024-10-13 16:24 | EX.ED.GENINJ ---
HPI History of Present Illness Chief Complaint: Laceration Detail of Chief Complaint: Laceration dorsal surface mid left forearm Informant: patient Onset/Context/Timing Onset: Today and Hours Mechanism/Context: Incised (Accidentally cut with a knife) Current Severity: Gone Maximum Severity: Mild Worsened by: Initial injury Relieved by: Not applicable Associated Symptoms Associated Symptoms: Negative for Parasthesias, Weakness or Loss of function Narrative Narrative: Patient is a 69-year-old woman. She presents because of laceration dorsum of her left forearm. She is right-hand dominant. She denies paresthesia, anesthesia or motor weakness. Tetanus was 1 year ago. She has no other complaints or symptoms. Tetanus Immunization: <5 years Prior similar symptoms: No Recent Illness/Hospitalization: No PFSH PFSH Medical History Wears glasses Post-menopausal Alcohol use History of torn meniscus of left knee History of wrist fracture Easy bruising Non-smoker History of stress test History of echocardiogram Hypercholesteremia Arthritis Restless leg syndrome Osteoporosis Home Medications ?Medication ?Instructions ?Recorded ?Last Taken ?Type ropinirole 0.25 mg tablet 0.5 mg PO QHS 07/18/21 09/25/23 History calcium 300 mg-vit D3 200 2 tab PO DAILY 08/27/23 09/24/23 History xtio-fulkqmyi-lmuskxzcn 13.5 mg tablet (Citracal Plus Bone Density Builder) cholecalciferol (vitamin D3) 50 2,000 unit PO DAILY 08/27/23 09/24/23 History mcg (2,000 unit) capsule cyclobenzaprine 10 mg tablet 10 mg PO HS PRN muscle spasm 08/27/23 09/24/23 History denosumab 60 mg/mL subcutaneous 60 mg subcut [id number] osteoporosis 08/27/23 07/11/23 History syringe (Prolia) red yeast rice 600 mg capsule 600 mg PO DAILY 08/27/23 09/23/23 History Allergy/AdvReac Type Severity Reaction Status Date / Time No Known Allergies Allergy Verified 10/13/24 14:39 Family History Sister Graves disease Father Lung cancer Brain cancer Kidney carcinoma Mother Cardiomyopathy Surgical History Hx of eye surgery Hx of hand surgery Hx of colonoscopy History of back surgery History of discectomy Social History household members: spouse current occupational status: retired Smoking Status: Never smoker alcohol intake: current alcohol intake frequency: a few times a week Alcohol type: wine details: 4 glasses weekly substance use type: does not use ROS ROS ED Constitutional Constitutional ED: Denies chills, fever(s), subjective or sweats Musculoskeletal Musculoskeletal: Reports other Details: Per HPI narrative ; Denies arthralgias or myalgias Integumentary Reports other Details: 3.5 cm gaping slightly curvilinear laceration Neurologic Neurologic: Denies paresthesias Hematologic/Lymphatic Hematologic/Lymphatic: Denies easy bleeding or easy bruising EXAM Physical Exam Const Vital Signs: 10/13/24 14:36 Temperature 98.1 F Temperature Source Oral Pulse Rate 97 Respiratory Rate 16 Blood Pressure 166/69 H Blood Pressure Mean 101 Pulse Ox 98 Oxygen Delivery Method Room Air Positive well nourished and well developed General Appearance ED: well developed and NAD HEENT HEENT Narrative: Head is normocephalic. Ears are normal. Nares patent atraumatic Eyes PERRL and EOMs intact bilaterally Resp normal respiratory effort Cardio regular rhythm Rate: regular rate Extremity full ROM; Negative for normal to inspection Extremity Narrative: Median, radial and ulnar function intact. Patient has a 3.5 cm curvilinear laceration dorsum of the left forearm. Radial pulses palpable. She has normal sensation of her digits. She has full extension at the wrist. Neuro oriented x3, CN's II-XII intact bilaterally, moves all extremities, no focal motor deficits and no sensory deficits noted [place] Coma Scale: document GCS findings Spontaneous Obeys Commands Oriented 15 Sensorium / Orientation: alert Psych mental status grossly normal Skin Skin Narrative: Laceration left forearm PROC Procedures Other Procedures Procedure(s): Laceration repair: Patient has a 3.5 cm curvilinear laceration. It is gaping. The fascia was not violated. There is no foreign body noted. Patient was prepped sterile manner. No size with 1% lidocaine by local infiltration. Total of 3 cc was infiltrated. Wound was irrigated with 1050 cc of normal saline. Using 5-0 Ethilon 6 horizontal mattress stitches and 1 simple interrupted stitch was placed with good cosmesis hemostasis. Patient be discharged home with appropriate home-going structures. She tolerated procedure. MDM MDM MDM Narrative Medical decision making narrative: Patient has laceration which will require repair. Please see procedure note. There is no indication for imaging. Blood pressure is elevated which may be due to the fact that she is in the hallway and is chaotic. Discharge Plan Triage Chief Complaint: Laceration ED Provider: Harry Prather Dx/Rx/DC Orders Clinical Impression: Laceration of forearm, left, Elevated blood-pressure reading without diagnosis of hypertension Instructions: ED Laceration Extremity Prescriptions: No Action red yeast rice 600 mg capsule 600 mg PO DAILY Rx Instructions: give with meal/snack Prolia 60 mg/mL syringe 60 mg subcut [id number] Patient Comments: July 2023 cyclobenzaprine 10 mg tablet 10 mg PO HS PRN (Reason: muscle spasm) cholecalciferol (vitamin D3) 50 mcg (2,000 unit) capsule 2,000 unit PO DAILY Citracal Plus Bone Density 300-200-13.5 mg-unit-mg tablet 2 tab PO DAILY ropinirole 0.25 mg Tablet 0.5 mg PO QHS Primary Care Provider: Breanna Rudolph Referrals: Breanna Rudolph, [facility] [Primary Care Provider] - 10 Day for suture removal Activity Restrictions/Additional Instructions: 1. Keep wound clean and dry for the next 4872 hours. 2. Apply bacitracin twice a day 3. There is any concern for infection see nurse practitioner Ronni or return to the emergency department Print Language: [place] Disposition Disposition: NonSkilled PR/Intermed Care
[2024-10-13 16:35] VITALS: BP 143/67; PULSE 84; RESP 16; TEMP 37.1; O2SAT 100
== END 2024-10-13 16:36 | disposition home or self-care (01) ==
PROVIDERS: Emergency Provider Emergency Medicine; PCP Nurse Practitioner Family; Visit Provider Emergency Medicine
DX: S51.812A Laceration without foreign body of left forearm, initial encounter (principal); W26.0XXA Contact with knife, initial encounter; R03.0 Elevated blood-pressure reading, without diagnosis of hypertension
CPT/HCPCS: 12002; 99283